=== PATIENT | male | born 1950 | race Caucasian/White ===

== ENCOUNTER 2023-08-27 16:11 | Emergency (ER) | payer MEDICARE ==
[2023-08-27] MEDS: Ketorolac 30 MG/ML SDV IM ONE (16:50)
== END 2023-08-27 17:00 | disposition home or self-care (01) ==
LOC: KA.ED 16:11 → MERGE 16:11 → KA.ED 17:00
DX: K04.7 Periapical abscess without sinus (principal); F17.210 Nicotine dependence, cigarettes, uncomplicated
CPT/HCPCS: 96372; 99283; J1885

== ENCOUNTER 2024-10-24 12:13 | Inpatient (IN) | payer MEDICARE, MEDICAID ==
[2024-10-24 12:46] LABS: BASOPHILS ABSOLUTE AUTO 0.00 10^3/uL (0.00-0.10); BASOPHILS PERCENT AUTO 0.0 % (0.0-1.0); EOSINOPHILS ABSOLUTE AUTO 0.00 10^3/uL (0.10-0.30); EOSINOPHILS PERCENT AUTO 0.0 % (1.0-3.0); IMMATURE GRAN ABSOLUTE AUTO 0.05 10^3/uL (0.00-0.04); IMMATURE GRAN PERCENT AUTO 0.2 % (0.0-0.4); LYMPHOCYTES ABSOLUTE AUTO 0.89 10^3/uL (1.00-4.00); LYMPHOCYTES PERCENT AUTO 4.4 % (20.0-40.0); MEAN PLATELET VOLUME 10.4 fL (7.4-10.4); MONOCYTES ABSOLUTE AUTO 1.35 10^3/uL (0.10-0.80); MONOCYTES PERCENT AUTO 6.7 % (2.0-8.0); NEUTROPHILS ABSOLUTE AUTO 17.74 10^3/uL (2.50-7.00); NEUTROPHILS PERCENT AUTO 88.7 % (50.0-70.0); PLATELET COUNT,PLT 246 10^3/uL (150-400); RED BLOOD CELL COUNT 5.66 10^6/uL (4.50-6.00); RED CELL DISTRIBUTION WIDTH 12.7 % (11.5-14.5); WHITE BLOOD CELL COUNT,WBC 20.03 10^3/uL (5.00-10.00)
[2024-10-24 13:09] LABS: ALANINE AMINOTRANSFERASE,ALT 30.0 U/L (14-63); ASPARTATE AMNIOTRANSFERASE,AST 48.0 U/L (15-37); BILIRUBIN TOTAL 1.3 mg/dL (0.2-1.0); BLOOD UREA NITROGEN,BUN 28.0 mg/dL (7-18); CARBON DIOXIDE,CO2 21.1 mmol/L (21.0-32.0); CHLORIDE,CL 100.0 mmol/L (98-107); CREATININE 1.4 mg/dL (0.51-1.17); EST CRCL DRUG DOSING (CG) 53.9 mL/min; GLUCOSE RANDOM 213.0 mg/dL (70-140); POTASSIUM,K 4.6 mmol/L (3.5-5.1); PROTEIN TOTAL,TP 7.8 g/dL (6.4-8.2); SODIUM,NA 135.0 mmol/L (136-145)
[2024-10-24 13:13] LABS: CREATINE KINASE,CK 2098.0 U/L (26-276); ESTIMATED GFR 53.0 mL/min (>=60)
[2024-10-24] MEDS ORDERED: Ondansetron 4 MG/2 ML SDV IV PRN (15:34)
[2024-10-24 16:23] LABS: APPEARANCE,URINE CLEAR (CLEAR); GLUCOSE,URINE 250 mg/dL (NEGATIVE)
[2024-10-24 16:24] LABS: OCCULT BLOOD,URINE SMALL (NEGATIVE)
[2024-10-24 16:26] LABS: EPITHELIAL CELLS,URINE RARE /LPF
[2024-10-25 07:34] LABS: BASOPHILS ABSOLUTE AUTO 0.01 10^3/uL (0.00-0.10); BASOPHILS PERCENT AUTO 0.1 % (0.0-1.0); EOSINOPHILS ABSOLUTE AUTO 0.04 10^3/uL (0.10-0.30); EOSINOPHILS PERCENT AUTO 0.3 % (1.0-3.0); IMMATURE GRAN ABSOLUTE AUTO 0.03 10^3/uL (0.00-0.04); IMMATURE GRAN PERCENT AUTO 0.3 % (0.0-0.4); LYMPHOCYTES ABSOLUTE AUTO 1.47 10^3/uL (1.00-4.00); LYMPHOCYTES PERCENT AUTO 12.8 % (20.0-40.0); MEAN PLATELET VOLUME 9.8 fL (7.4-10.4); MONOCYTES ABSOLUTE AUTO 1.17 10^3/uL (0.10-0.80); MONOCYTES PERCENT AUTO 10.2 % (2.0-8.0); NEUTROPHILS ABSOLUTE AUTO 8.77 10^3/uL (2.50-7.00); NEUTROPHILS PERCENT AUTO 76.3 % (50.0-70.0); PLATELET COUNT,PLT 162 10^3/uL (150-400); RED BLOOD CELL COUNT 4.74 10^6/uL (4.50-6.00); RED CELL DISTRIBUTION WIDTH 12.8 % (11.5-14.5); WHITE BLOOD CELL COUNT,WBC 11.49 10^3/uL (5.00-10.00)
[2024-10-25 07:59] LABS: ALANINE AMINOTRANSFERASE,ALT 28.0 U/L (14-63); ASPARTATE AMNIOTRANSFERASE,AST 60.0 U/L (15-37); BILIRUBIN TOTAL 1.3 mg/dL (0.2-1.0); BLOOD UREA NITROGEN,BUN 19.0 mg/dL (7-18); CARBON DIOXIDE,CO2 25.9 mmol/L (21.0-32.0); CHLORIDE,CL 107.0 mmol/L (98-107); CREATININE 0.98 mg/dL (0.51-1.17); EST CRCL DRUG DOSING (CG) 77.0 mL/min; GLUCOSE RANDOM 149.0 mg/dL (70-140); POTASSIUM,K 4.7 mmol/L (3.5-5.1); PROTEIN TOTAL,TP 6.1 g/dL (6.4-8.2); SODIUM,NA 141.0 mmol/L (136-145)
[2024-10-25 08:01] LABS: ESTIMATED GFR 82.0 mL/min (>=60)
[2024-10-25 08:02] LABS: CREATINE KINASE,CK 2025.0 U/L (26-276)
[2024-10-26 07:27] LABS: BASOPHILS ABSOLUTE AUTO 0.02 10^3/uL (0.00-0.10); BASOPHILS PERCENT AUTO 0.2 % (0.0-1.0); EOSINOPHILS ABSOLUTE AUTO 0.11 10^3/uL (0.10-0.30); EOSINOPHILS PERCENT AUTO 1.2 % (1.0-3.0); IMMATURE GRAN ABSOLUTE AUTO 0.03 10^3/uL (0.00-0.04); IMMATURE GRAN PERCENT AUTO 0.3 % (0.0-0.4); LYMPHOCYTES ABSOLUTE AUTO 1.73 10^3/uL (1.00-4.00); LYMPHOCYTES PERCENT AUTO 19.6 % (20.0-40.0); MEAN PLATELET VOLUME 9.5 fL (7.4-10.4); MONOCYTES ABSOLUTE AUTO 0.81 10^3/uL (0.10-0.80); MONOCYTES PERCENT AUTO 9.2 % (2.0-8.0); NEUTROPHILS ABSOLUTE AUTO 6.11 10^3/uL (2.50-7.00); NEUTROPHILS PERCENT AUTO 69.5 % (50.0-70.0); PLATELET COUNT,PLT 180 10^3/uL (150-400); RED BLOOD CELL COUNT 4.76 10^6/uL (4.50-6.00); RED CELL DISTRIBUTION WIDTH 12.5 % (11.5-14.5); WHITE BLOOD CELL COUNT,WBC 8.81 10^3/uL (5.00-10.00)
[2024-10-26 07:54] LABS: ALANINE AMINOTRANSFERASE,ALT 32.0 U/L (14-63); ASPARTATE AMNIOTRANSFERASE,AST 67.0 U/L (15-37); BILIRUBIN TOTAL 0.8 mg/dL (0.2-1.0); BLOOD UREA NITROGEN,BUN 15.0 mg/dL (7-18); CARBON DIOXIDE,CO2 29.4 mmol/L (21.0-32.0); CHLORIDE,CL 107.0 mmol/L (98-107); CREATININE 0.88 mg/dL (0.51-1.17); EST CRCL DRUG DOSING (CG) 85.75 mL/min; GLUCOSE RANDOM 151.0 mg/dL (70-140); POTASSIUM,K 4.6 mmol/L (3.5-5.1); PROTEIN TOTAL,TP 6.5 g/dL (6.4-8.2); SODIUM,NA 143.0 mmol/L (136-145)
[2024-10-26 07:57] LABS: ESTIMATED GFR 91.0 mL/min (>=60)
[2024-10-26 07:58] LABS: CREATINE KINASE,CK 1112.0 U/L (26-276)
[2024-10-27 07:31] LABS: BASOPHILS ABSOLUTE AUTO 0.01 10^3/uL (0.00-0.10); BASOPHILS PERCENT AUTO 0.1 % (0.0-1.0); EOSINOPHILS ABSOLUTE AUTO 0.19 10^3/uL (0.10-0.30); EOSINOPHILS PERCENT AUTO 2.5 % (1.0-3.0); IMMATURE GRAN ABSOLUTE AUTO 0.02 10^3/uL (0.00-0.04); IMMATURE GRAN PERCENT AUTO 0.3 % (0.0-0.4); LYMPHOCYTES ABSOLUTE AUTO 1.56 10^3/uL (1.00-4.00); LYMPHOCYTES PERCENT AUTO 20.6 % (20.0-40.0); MEAN PLATELET VOLUME 9.7 fL (7.4-10.4); MONOCYTES ABSOLUTE AUTO 0.77 10^3/uL (0.10-0.80); MONOCYTES PERCENT AUTO 10.1 % (2.0-8.0); NEUTROPHILS ABSOLUTE AUTO 5.04 10^3/uL (2.50-7.00); NEUTROPHILS PERCENT AUTO 66.4 % (50.0-70.0); PLATELET COUNT,PLT 190 10^3/uL (150-400); RED BLOOD CELL COUNT 4.80 10^6/uL (4.50-6.00); RED CELL DISTRIBUTION WIDTH 12.2 % (11.5-14.5); WHITE BLOOD CELL COUNT,WBC 7.59 10^3/uL (5.00-10.00)
[2024-10-27 07:50] LABS: ALANINE AMINOTRANSFERASE,ALT 41.0 U/L (14-63); ASPARTATE AMNIOTRANSFERASE,AST 57.0 U/L (15-37); BILIRUBIN TOTAL 0.7 mg/dL (0.2-1.0); BLOOD UREA NITROGEN,BUN 16.0 mg/dL (7-18); CARBON DIOXIDE,CO2 28.3 mmol/L (21.0-32.0); CHLORIDE,CL 106.0 mmol/L (98-107); CREATININE 0.75 mg/dL (0.51-1.17); EST CRCL DRUG DOSING (CG) 100.61 mL/min; GLUCOSE RANDOM 166.0 mg/dL (70-140); POTASSIUM,K 4.3 mmol/L (3.5-5.1); PROTEIN TOTAL,TP 6.6 g/dL (6.4-8.2); SODIUM,NA 141.0 mmol/L (136-145)
[2024-10-27 07:54] LABS: ESTIMATED GFR 96.0 mL/min (>=60)
[2024-10-27 10:25] VITALS: BP 136/73; PULSE 66
== END 2024-10-27 10:34 | disposition home or self-care (01) | DRG 565 ==
LOC: KA.ED 12:13 → KA.MS 15:03
PROVIDERS: ADMIT Internal Medicine; ATTEND Internal Medicine
DX: T79.6XXA Traumatic ischemia of muscle, initial encounter (principal); R19.7 Diarrhea, unspecified; E87.20 Acidosis, unspecified; N17.9 Acute kidney failure, unspecified; D72.829 Elevated white blood cell count, unspecified; R79.89 Other specified abnormal findings of blood chemistry; F17.200 Nicotine dependence, unspecified, uncomplicated; F17.210 Nicotine dependence, cigarettes, uncomplicated; E86.0 Dehydration; M54.9 Dorsalgia, unspecified; G89.29 Other chronic pain; R53.81 Other malaise; Z74.2 Need for assistance at home and no other household member able to render care; Z85.820 Personal history of malignant melanoma of skin; Z79.890 Hormone replacement therapy; W01.0XXA Fall on same level from slipping, tripping and stumbling without subsequent striking against object, initial encounter; Y92.002 Bathroom of unspecified non-institutional (private) residence as the place of occurrence of the external cause
CPT/HCPCS: 36415; 71045; 80053; 81001; 82550; 83605; 85025; 87040; 96360; 97110-GP; 97116-GP; 97161-GP; 97165-GO; 97530-GO; 99223-GT; 99232-GT; 99233-GT; 99239-GT; 99284; 99285-25; A9270-GY; J7030; Q3014